=== PATIENT | female | born 1970 | race Caucasian/White ===

== ENCOUNTER 2018-10-29 09:23 | Day surgery (SDC) | payer BC ==
[~2018-10-29 09:23] MED LIST: Buffered Lidocaine 1% SYRIN* 1 ML/SYRINGE INTRADERM ONE; Dexamethasone IV* 4 MG/ML 1 ML (4 MG) IV SLOW PU ONE; Famotidine TAB* 20 MG PO ONE; Lactated Ringers 1000 ML Bag* 1,000 ML IV SCH
[2018-10-29] MEDS ORDERED: ceFAZolin 2 GM in NS PREMIX(*) 2 GM/100 ML BAG IVPB ONE (10:37)
[2018-10-29] MEDS ORDERED: Buffered Lidocaine 1% SYRIN* 1 ML/SYRINGE INTRADERM ONE (10:37)
[2018-10-29] MEDS ORDERED: Midazolam* 1 MG/ML 2 ML VIAL (2 MG) ONE (11:09)
[2018-10-29] MEDS ORDERED: fentaNYL* 50 MCG/ML 2 ML VIAL (100 MCG VIAL) ONE ×2 (11:09→14:10)
[2018-10-29] MEDS ORDERED: Lidocaine 2% PF * 5 ML VIAL ONE (11:10)
[2018-10-29] MEDS ORDERED: Propofol* 10 MG/ML 20 ML BTL ONE (11:10)
[2018-10-29] MEDS ORDERED: Succinylcholine* 20 MG/ML 10 ML VIAL ONE (11:10)
[2018-10-29] MEDS ORDERED: Bupivacaine 0.25% SDV PF* 10 ML VIAL INJ ONE (11:39)
[2018-10-29] MEDS ORDERED: Naloxone* 0.4 MG/ML 1 ML VIAL IV PRN (12:30)
[2018-10-29] MEDS ORDERED: Ketorolac INJ* 30 MG/ML 1 ML VIAL IV PRN (12:30)
[2018-10-29] MEDS ORDERED: Acetaminophen TAB* 325 MG PO PRN (12:30)
[2018-10-29] MEDS ORDERED: oxyCODONE/Acetamin 5/325 MG* TAB PO PRN (12:30)
[2018-10-29] MEDS ORDERED: DiMENhydriNATE IV* 50 MG/ML VIAL IV PUSH PRN (12:30)
[2018-10-29] MEDS ORDERED: Scopolamine 1.5 mg* PATCH TRANSDERM SCH (13:00)
[2018-10-29] MEDS ORDERED: Ondansetron INJ* 2 MG/ML VIAL ONE (13:36)
[2018-10-29] MEDS: fentaNYL* 50 MCG/ML 2 ML VIAL (100 MCG VIAL) IV PRN ×2 (14:13→14:20)
[2018-10-29] MEDS ORDERED: Scopolamine 1.5 mg* PATCH ONE (14:36)
[2018-10-29 14:57] VITALS: BP 127/69
--- NOTE | 2018-10-29 21:47 | OP ---
DATE OF OPERATION: 10/29/18 [facility] DATE OF : 72 SURGEON: Oscar Mesa MD EDUCATIONAL CONSULTANT: WILL Webb. An camp assistant was needed for the entirety of the procedure to aid in positioning of the arm and retraction. ANESTHESIOLOGIST: Dr. Mandujano. ANESTHESIA: General. 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 OPERATIVE PROCEDURE: Repair of left small finger metacarpophalangeal joint radial collateral ligament with autogenous local tissue. INDICATIONS: Shirin has the injury confirmed on x-ray and MRI where she had a little bit of calcification in the area of the ligament on x-ray. MRI confirmed a rupture. There is no evidence of rheumatoid arthritis or any other inflammatory arthropathy. We had talked about her options. It was chronically painful and she wanted to do something about it. She understands the risk of stiffness, the risk of persistent instability, the risk of persistent pain despite doing surgery, as well as other potential surgical risk. She wishes to proceed. ESTIMATED BLOOD LOSS: 2 mL. COMPLICATIONS: None. FINDINGS: The ligament had ruptured off the proximal phalanx and has assumed a vertical position. After releasing it from its attachment on the volar plate, I was able to rotate it back and repair it back to its footprint. DESCRIPTION OF PROCEDURE: Ms. Torre was seen in the preoperative holding area. The correct site, side, and procedure were identified. We came back to the operating room where the arm was prepped and draped in the usual fashion and a time-out was performed. The arm was exsanguinated with the Esmarch and the tourniquet was inflated to 250 mmHg. I went ahead and made a curvilinear incision around the radial aspect of the dorsum of the left small finger metacarpophalangeal joint. Dissection was carried down and full thickness flaps were raised off the extensor tendon. I identified the oblique fibers coming from the radial lateral band. These were incised where they inserted on to the central slip. This provided excellent access to the radial aspect of the metacarpophalangeal joint. It was immediately apparent that the ligament had ruptured off of its proximal phalanx insertion. There are some degenerative tissue there, but no good looking collagen fibers. As I dissected back, I did note that the ligament still looked like it was relatively out to length, but had assumed a much more vertical orientation. I went ahead and used a [place] blade to excise all of the degenerative looking tissue preserving only healthy looking collagen. I released it from its attachments where it is scared in vertically on to the volar plate. I was unable to derotate it back to its more anatomic footprint. I thought that I actually had a quite a bit of good collagen and can get a very nice repair. I therefore took the 2 Arthrex microsuture anchors and drilled the transport pilot hole and placed them in a standard fashion, one at about 5 o'clock and the other at about 2 to 3 o'clock. I used a 2-0 FiberWire suture coming off these to whip stitch into the radial collateral ligament and then this was sowed back to the footprint in a standard fashion. I had prepared the bone, so it was just going to bleed just a little bit so as to help with ligament healing. Once the ligament was sowed back into place, I took it though a flexion and extension arc, there was no catching, it glided nicely through flexion and extension. It was very stable within the ulnar direction stress testing at 0 and 30 degrees of flexion. Everything was looking good, so I irrigated out the wound. I did repair the inferior aspect of the ligament back to the volar plate with a 3-0 Ethibond [id number] suture. The splint in the extensor tendon was closed with 5-0 Prolene suture. The skin was closed with 4-0 nylon suture. 0.25% plain Marcaine was infiltrated about the operative area. The wound was dressed with Xeroform, 4 x 4, sterile Webril, and then an ulnar gutter splint, with the hand in the protected position it was applied. She was then taken to the recovery room in stable condition. [id number]/[facility] #: [id number] [place]
== END 2018-10-29 15:04 | disposition home or self-care (01) ==
LOC: OR 09:23
PROVIDERS: ATTEND Orthopaedic Surgery Hand Surgery
DX: S63.65 Sprain of metacarpophalangeal joint of other and unspecified finger(s) (principal); I10 Essential (primary) hypertension; D64.9 Anemia, unspecified; M79.7 Fibromyalgia; M45.9 Ankylosing spondylitis of unspecified sites in spine; Z87.891 Personal history of nicotine dependence; X58.XXXD Exposure to other specified factors, subsequent encounter
CPT/HCPCS: 81025; A9270-GY; C1713; J0330; J0690; J2250; J2405; J2704; J3010; J3490